=== PATIENT | female | born 1985 | race Caucasian/White ===

== ENCOUNTER 2017-12-11 21:53 | Emergency (ER) | payer OTHER ==
[2017-12-11] MEDS ORDERED: Ketorolac 60 MG/2 ML SDV IM ONE (22:37)
[2017-12-11] MEDS ORDERED: Take Home: Amoxicillin 875 MG Tab, 2 Tab Pack PO ONE (22:38)
--- NOTE | 2017-12-13 03:40 | EDM.PDOC ---
ED HPI GENERAL MEDICAL PROBLEM - General Chief Complaint: Fever Stated Complaint: neck pain, headache, sore throat, fever Time Seen by Provider: 12/11/17 22:05 Source of Information: Reports: Patient History Limitations: Reports: No Limitations - History of Present Illness INITIAL COMMENTS - FREE TEXT/NARRATIVE: Complains of severe sore throat, lymphadenopathy, fever and headache that has been present for the past several days. She denies any chest pain or shortness of breath. No cough. No weakness. She denies any rash. Denies any nausea, vomiting, chest pain, or shortness of breath. 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: Social & Family History - Tobacco Use Smoking Status *Q: Unknown Ever Smoked ED ROS GENERAL - Review of Systems Review Of Systems: See Below Constitutional: Reports: Fever, Chills, Malaise, Fatigue HEENT: Reports: Throat Pain Respiratory: Reports: No Symptoms Cardiovascular: Reports: No Symptoms Endocrine: Reports: No Symptoms GI/Abdominal: Reports: No Symptoms : Reports: No Symptoms Musculoskeletal: Reports: Joint Pain, Muscle Pain Skin: Reports: No Symptoms Neurological: Reports: No Symptoms Psychiatric: Reports: No Symptoms Hematologic/Lymphatic: Reports: No Symptoms Immunologic: Reports: No Symptoms ED EXAM, GENERAL - Physical Exam Exam: See Below Exam Limited By: No Limitations General Appearance: Alert, WD/WN, No Apparent Distress Eye Exam: Bilateral Eye: EOMI, Normal Fundi, Normal Inspection Ears: Normal External Exam, Normal Canal, Hearing Grossly Normal, Normal TMs Ear Exam: Bilateral Ear: Auricle Normal, Canal Normal, TM normal Nose: Normal Inspection, Normal Mucosa, No Blood Throat/Mouth: Normal Lips, Normal Teeth, Normal Gums, No Airway Compromise, Inflammation Head: Atraumatic, Normocephalic Neck: Normal Inspection, Supple, Non-Tender, Full Range of Motion Respiratory/Chest: No Respiratory Distress, Lungs Clear, Normal Breath Sounds, No Accessory Muscle Use, Chest Non-Tender Cardiovascular: Normal Peripheral Pulses, Regular Rate, Rhythm, No Edema, No Gallop, No JVD, No Murmur, No Rub GI/Abdominal: Normal Bowel Sounds, Soft, Non-Tender, No Organomegaly, No Distention, No Abnormal Bruit, No Mass (Female) Exam: Deferred Rectal (Female) Exam: Deferred Back Exam: Normal Inspection, Full Range of Motion, NT Extremities: Normal Inspection, Normal Range of Motion, Non-Tender, Normal Capillary Refill, No Pedal Edema Neurological: Alert, Oriented, CN II-XII Intact, Normal Cognition, Normal Gait, Normal Reflexes, No Motor/Sensory Deficits Skin Exam: Warm, Dry, Intact, Normal Color, No Rash Lymphatic: Adenopathy Course - Vital Signs Last Recorded V/S: Last Vital Signs Temp 38.3 C H 12/11/17 21:55 Pulse 104 H 12/11/17 21:55 Resp 16 12/11/17 21:55 BP 137/92 H 12/11/17 21:55 Pulse Ox 97 12/11/17 21:55 - Orders/Labs/Meds Meds: Medications Discontinued Medications Generic Name Dose Route Start Last Admin Trade Name Harry PRN Reason Stop Dose Admin Amoxicillin 1 packet 12/11/17 22:38 12/11/17 22:49 Take Home: Amoxicillin 875 Mg Tab, 2 Tab Pack PO 12/11/17 22:39 1 packet ONETIME ONE Administration Ketorolac Tromethamine 60 mg 12/11/17 22:37 12/11/17 22:45 Toradol IM 12/11/17 22:38 60 mg ONETIME ONE Administration Departure - Departure Time of Disposition: 22:40 Disposition: Home, Self-Care 01 Clinical Impression: Pharyngitis due to group A beta hemolytic Streptococci - Discharge Information Instructions: Amoxicillin capsules or tablets, Pharyngitis Referrals: Nidia Kelly DO [Primary Care Provider] - Forms: ED Department Discharge Additional Instructions: Amoxicillin 875mg twice daily Tylenol and ibuprofen for fever/discomfort (starting tomorrow) Drink plenty of fluids. Follow-up in clinic in 5-7 days if not improving. - Assessment/Plan Plan: Amoxicillin 875mg twice daily Tylenol and ibuprofen for fever/discomfort (starting tomorrow) Drink plenty of fluids. Follow-up in clinic in 5-7 days if not improving.
== END 2017-12-11 22:54 | disposition home or self-care (01) ==
LOC: VM.ED 21:53
DX: J02.0 Streptococcal pharyngitis (principal); B95.0 Streptococcus, group A, as the cause of diseases classified elsewhere; Z88.2 Allergy status to sulfonamides
CPT/HCPCS: 87081; 87880-QW; 96372; 99283; A9270-GY; J1885

== ENCOUNTER 2019-03-26 03:13 | Emergency (ER) | payer OTHER ==
[2019-03-26] MEDS ORDERED: Take Home: Doxycycline 100 MG Tab, 4 Tab Pack PO ONE (03:32)
--- NOTE | 2019-03-26 08:36 | EDM.PDOC ---
ED HPI GENERAL MEDICAL PROBLEM - General Chief Complaint: Skin Complaint Stated Complaint: infected piercing Time Seen by Provider: 03/26/19 03:13 Source of Information: Reports: Patient History Limitations: Reports: No Limitations - History of Present Illness INITIAL COMMENTS - FREE TEXT/NARRATIVE: PtYoan presents to ER with complaints of infection of 2 dermal piercings to her L forearm/wrist area. She has had these piercings for about 4 years and states that they frequently get infected. Today she has developed increased discomfort and swelling to the area, axillary pain, and nausea. She has been running a low grade fever. Denies any lightheadedness. No vomiting or diarrhea. No cough or chest congestion. Onset: Today Onset Date: 03/26/19 Location: Reports: Upper Extremity, Left Left Arm Pain Score (Numeric/FACES): 8 - Related Data Allergies Allergy/AdvReac Type Severity Reaction Status Date / Time sulfamethoxazole Allergy Other Verified 03/26/19 03:14 [From ] trimethoprim [From ] Allergy Other Verified 03/26/19 03:14 Home Meds: Home Meds . 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: Social & Family History - Tobacco Use Smoking Status *Q: Never Smoker ED ROS GENERAL - Review of Systems Review Of Systems: See Below Constitutional: Reports: No Symptoms HEENT: Reports: No Symptoms Respiratory: Reports: No Symptoms Cardiovascular: Reports: No Symptoms Endocrine: Reports: No Symptoms GI/Abdominal: Reports: No Symptoms : Reports: No Symptoms Musculoskeletal: Reports: Arm Pain Skin: Reports: Other Neurological: Reports: No Symptoms Psychiatric: Reports: No Symptoms Hematologic/Lymphatic: Reports: No Symptoms Immunologic: Reports: No Symptoms ED EXAM, SKIN/RASH Exam: See Below Exam Limited By: No Limitations General Appearance: Alert, WD/WN, No Apparent Distress Respiratory/Chest: No Respiratory Distress, Lungs Clear, Normal Breath Sounds, No Accessory Muscle Use, Chest Non-Tender Cardiovascular: Normal Peripheral Pulses, Regular Rate, Rhythm, No Edema, No Gallop, No JVD, No Murmur, No Rub GI/Abdominal: Normal Bowel Sounds, Soft, Non-Tender, No Organomegaly, No Distention, No Abnormal Bruit, No Mass, Pelvis Stable Extremities: Normal Range of Motion, Non-Tender, No Pedal Edema, Normal Capillary Refill, Other (tissue surrounding the piercings is erythatous edematous. The studs are buried quite far into the skin.) ED SKIN PROCEDURES - Foreign Body Removal Consent Obtained:: Patient Performing Doctor:: Oral [facility] Foreign [facility] Other Location Comment:: Area was cleansed with chlorhexidine. Area was anesthetized with a total of 3 ml of 1% lidocaine. The skin had to be knicked with a scalple to remove the studs, which have a button/button hole type of design. No cultureable area noted. No obvious abscess. No wide spread cellulitis noted. Anesthesia Type: Local Complications:: No Course - Vital Signs Last Recorded V/S: Last Vital Signs Temp 37.1 C 03/26/19 03:16 Pulse 97 03/26/19 03:16 Resp 16 03/26/19 03:16 BP 140/87 03/26/19 03:16 Pulse Ox 99 03/26/19 03:16 - Orders/Labs/Meds Meds: Medications Discontinued Medications Generic Name Dose Route Start Last Admin Trade Name Paulq PRN Reason Stop Dose Admin Doxycycline Monohydrate 1 packet 03/26/19 03:32 03/26/19 03:37 Take Home: Doxycycline 100 Mg, 4 Tab Pack PO 03/26/19 03:33 1 packet ONETIME ONE Administration Lidocaine HCl 5 ml 03/26/19 03:15 03/26/19 03:24 Xylocaine-Mpf 1% INJECT 03/26/19 03:16 5 ml ONETIME ONE Administration Departure - Departure Time of Disposition: 03:40 Disposition: Home, Self-Care 01 Clinical Impression: Foreign body (FB) in soft tissue - Discharge Information Instructions: Cellulitis, Adult, [id number] Forms: ED Department Discharge Additional Instructions: Doxycycline 100mg 1 twice daily for 10 days Ibuprofen 200mg 3 tabs every 6 hours as needed for pain Off work tomorrow if needed Return to ER if increased redness, swelling, or discharge from area. Also return if you have any lightheadedness or weakness. Sepsis Event Note - Evaluation Sepsis Screening Result: No Definite Risk - Focused Exam Vital Signs: Vital Signs Temp Pulse Resp BP Pulse Ox 03/26/19 03:16 37.1 C 97 16 140/87 99 Date Exam was Performed: 03/26/19 Time Exam was Performed: 08:31 - Problem List Review Problem List Initiated/Reviewed/Updated: Yes - Assessment/Plan Plan: Doxycycline 100mg 1 twice daily for 10 days Ibuprofen 200mg 3 tabs every 6 hours as needed for pain Off work tomorrow if needed Return to ER if increased redness, swelling, or discharge from area. Also return if you have any lightheadedness or weakness.
== END 2019-03-26 03:40 | disposition home or self-care (01) ==
LOC: VM.ED 03:13
DX: S50.852A Superficial foreign body of left forearm, initial encounter (principal); S60.852A Superficial foreign body of left wrist, initial encounter; Z88.2 Allergy status to sulfonamides; Z88.8 Allergy status to other drugs, medicaments and biological substances; X58.XXXA Exposure to other specified factors, initial encounter
CPT/HCPCS: 10120; 99283; A9270; J2001

== ENCOUNTER 2022-07-14 20:12 | Emergency (ER) | payer MEDICAID, OTHER ==
[2022-07-14] MEDS: Sodium Chloride 0.9% 1,000 ML IV ONE (21:15)
[2022-07-14] MEDS: Ondansetron 4 MG/2 ML SDV IVPUSH ONE (21:20)
[2022-07-14 21:42] LABS: ANION GAP 18.4 mmol/L (5-15)
[2022-07-14] MEDS: Sodium Phosphate,Monobasic/Sodium Phosphate,Dibasic Enema 133 ML Bottle RECTAL ONE (21:42)
[2022-07-14] MEDS: Metoclopramide 10 MG/2 ML SDV IVPUSH ONE (22:30)
[2022-07-14] MEDS: Metoclopramide 10 MG Tab PO PRN (22:44)
[2022-07-14] MEDS: Take Home: Ondansetron 4 MG Tab.DIS, 5 Tab Pack PO ONE (22:45)
== END 2022-07-14 22:57 | disposition home or self-care (01) ==
LOC: VM.ED 20:12
DX: R10.9 Unspecified abdominal pain (principal); R11.2 Nausea with vomiting, unspecified; Z88.1 Allergy status to other antibiotic agents
CPT/HCPCS: 74019; 80053; 85025; 96361; 96374; 96375; 99284; A9270; J2405; J2765; J7030; Q0162